=== PATIENT | female | born 1975 | race Asian ===

== ENCOUNTER 2025-04-28 00:12 | Emergency (ER) | payer MEDICAID, SELFPAY ==
[2025-04-28 00:16] VITALS: BP 136/92
[2025-04-28 02:18] LABS: Hematocrit 34.1 % (37.0-47.0); Hemoglobin 10.5 g/dL (12.0-16.0); Mean Corp Hgb Conc. 30.8 g/dL (33.0-37.0); Mean Corpuscular Volume 67.3 fL (81.0-99.0); Nucleated Red Blood Cells % 0 %; Platelet Count 254 10^3/uL (130-400); Red Cell Dist. Width 17.9 % (11.5-14.5)
[2025-04-28 02:32] LABS: ALT (SGPT) 17 U/L (0-35); AST (SGOT) 21 U/L (14-36); Albumin 4.5 g/dl (3.5-5.0); Alkaline Phosphatase 49 U/L (38-126); Blood Urea Nitrogen 10 mg/dl (7-17); Calcium 9.4 mg/dl (8.4-10.2); Carbon Dioxide 26 mmol/L (22-30); Chloride 107 mmol/L (98-107); Glucose 114 mg/dl (70-99); Lipase 147 U/L (23-300); Potassium 4.2 mmol/L (3.5-5.1); Sodium 137 mmol/L (135-145); Total Protein 7.9 g/dl (6.3-8.2); eGFR > 60.00
--- NOTE | 2025-04-28 04:14 | ED.GENMED ---
History of Present Illness
General
Chief Complaint: Abdominal Pain
Source: patient
Exam Limitations: none
Time Seen by Provider: 04/28/25 04:12
Nursing documentation reviewed up to this point in time: agreed with
History of Present Illness
History of Present Illness:
Note:
CHIEF COMPLAINT(S)
Abdominal pain and recent episode of syncope at 10:00 AM.
HISTORY OF PRESENT ILLNESS
The patient is a 50-year-old female who presented with a chief complaint of abdominal pain and a recent episode of syncope. According to the patient, the abdominal pain began earlier today, around 10:00 AM, and is described as a burning sensation.
The pain is located in the abdomen and sometimes radiates to the back. The patient also reported that the sensation was so intense that it caused her to pass out temporarily. She described the pain with the phrase, 'like someone took a poke at it.'
When asked where the pain was located, she pointed to her abdomen and indicated the pain sometimes radiates to her back. The episode of syncope resolved quickly, and she was conscious upon arrival.
REVIEW OF SYSTEMS
- Gastrointestinal: Abdominal pain with burning sensation.
- Neurological: Recent episode of syncope.
PHYSICAL EXAM
- Assessment indicates normal results from the electrocardiogram examination and initial blood workup.
- Nursing notes reviewed and vital signs reviewed.
PROBLEM LIST
Acute Issues:
- Abdominal pain
- Episode of syncope
PLAN
Perform an abdominal ultrasound to evaluate gallbladder health. The patient is agreeable to this test. Suggestion considered that excessive gastrointestinal gas may have contributed to the syncope episode. Continue monitoring and reassurance was
provided.
DIFFERENTIAL DIAGNOSIS
The Differential Diagnosis includes, in no particular order and is not limited to:
1. Cholecystitis
2. Peptic ulcer disease
3. Pancreatitis
4. Gastroesophageal reflux disease (GERD)
5. Hepatic disease
6. Intestinal obstruction
7. Myocardial ischemia
8. Biliary colic
9. Gastritis
10. Syncope due to vasovagal response.
CARE-UPDATE
04/28/25 - 08:09
Ultrasound results indicate no acute findings or signs of hydronephrosis in the right kidney. The patients symptoms have improved, allowing for discharge. Syncope is likely due to a vasovagal episode, not ACS or PE. Discharge with appropriate care
instructions.
EKG
My independent EKG interpretation is:
- Time of EKG: Not specified
- Rhythm: Normal sinus rhythm
- Heart Rate: 88 beats per minute
- WA Interval: Normal
- QRS Duration: Normal
- QT Interval: Normal
- Cashiers: Not specified
- Abnormalities: No signs of ischemia
Disposition:
SUMMARY OF ENCOUNTER
The patient, a 50-year-old female, was seen in the emergency department for abdominal pain and a recent episode of syncope. The abdominal pain was described as a burning sensation that occasionally radiated to the back, and pain intensity led to a
temporary loss of consciousness. Initial tests, including an electrocardiogram and basic blood work, returned normal results. An abdominal ultrasound was performed to evaluate gallbladder health, which showed no acute findings. The syncope was
determined likely due to a vasovagal response, not acute coronary syndrome or pulmonary embolism.
DISPOSITION
Discharge.
PLAN
Continue monitoring symptoms, provide reassurance, and consider that gastrointestinal gas may have contributed to syncope. Discharge with appropriate care instructions and advice to follow up with primary care.
INDEPENDENT REVIEW OF LABS AND INTERPRETATION OF TESTS
- My independent EKG interpretation is normal sinus rhythm with a heart rate of 88 beats per minute, normal WA, QRS, and QT intervals, and no signs of ischemia. - My independent review of the ultrasound indicates no acute findings or signs of
hydronephrosis in the right kidney.
PATIENT EDUCATION AND COUNSELING
The patient was advised that the syncope was likely a vasovagal response and was reassured that the ultrasound showed no acute issues. She was instructed on management of her symptoms and the importance of follow-up care with her primary care
physician.
FOLLOW-UP INSTRUCTIONS
The patient was advised to follow up with primary care and return to the emergency department if symptoms worsen or new symptoms develop.
MEDICATION RECONCILIATION
No medications were prescribed or administered during this visit.
MEDICAL DECISION MAKING
- Chronic conditions affecting care: None mentioned. Differential diagnosis includes cholecystitis, peptic ulcer disease, pancreatitis, gastroesophageal reflux disease (GERD), hepatic disease, intestinal obstruction, myocardial ischemia, biliary
colic, gastritis, and syncope due to vasovagal response.
- Data:
Category 1: My independent interpretation of the EKG and ultrasound.
Category 3: Discussion of management and test interpretation with the patient, considering symptoms and test results.
-Risk: Consideration of Admission/Observation: Escalation of care including admission/observation was considered given the complexity and risk of the patients presenting complaint, exam findings, and/or their underlying comorbidities. However,
ultimately I feel the patient is safe for outpatient management with close follow up. Reasoning: Work-up reassuring, does not reveal any acute life/organ threatening processes, patients symptoms well controlled upon reevaluation, reexamination is
reassuring, vitals are stable, patient agreeable with discharge, reliable for follow-up.
DIAGNOSIS
- Syncope, likely vasovagal (R55)
- Abdominal pain, unspecified (R10.9)
Phy Exam
Physical Exam
Physical Exam:
.
Course
Orders/Labs/Results
Orders:
Orders
04/28/25 00:20
ECG [Electrocardiogram (*1)] Urgent
Reason for Study: Syncope
EKG- Treatment ONCE
04/28/25 01:58
Complete Blood Count/With Diff Urgent
Comprehensive Metabolic Panel Urgent
Lipase Urgent
04/28/25 04:28
US Abdomen Complete/Upper Urgent
Comment:
Reason For Exam: RUQ abd pain
Abnormal Lab Results
04/28/25
01:58
Hgb 10.5 L g/dL
(12.0-16.0)
Hct 34.1 L %
(37.0-47.0)
MCV 67.3 L fL
(81.0-99.0)
MCH 20.7 L pg
(27.0-31.0)
MCHC 30.8 L g/dL
(33.0-37.0)
RDW 17.9 H %
(11.5-14.5)
MPV 10.5 H fL
(7.4-10.4)
Glucose 114 H mg/dl
(70-99)
04/28/25 01:58
04/28/25 01:58
Vital Signs
Initial and Last Documented VS:
Initial Vital Signs
Temp Pulse Resp BP Pulse Ox
98.1 F 96 20 136/92 98
04/28/25 00:16 04/28/25 00:16 04/28/25 00:16 04/28/25 00:16 04/28/25 00:16
Last Documented Vital Signs
Temp Pulse Resp BP Pulse Ox
98.1 F 96 20 136/92 98
04/28/25 00:16 04/28/25 00:16 04/28/25 00:16 04/28/25 00:16 04/28/25 04:15
*Pulse Oximetry
SaO2: 98
Oxygen Mode of Delivery: Room air
Patient hypoxic: no
*Critical Care Note
Total Time (30-74mins, 75-104mins- exclusive of procedures): Not Applicable
ED Attending Note
-
Portions of this chart may have been created with voice recognition software.� Occasional wrong word or��sound alike� substitutions may have occurred due to the inherent limitations of voice recognition software.
Discharge Plan
Departure
Patient Disposition: Home (Routine Discharge)
Date of Disposition: 04/28/25
Time of Disposition: 08:13
Patient with high blood pressure during this ER visit?: Yes
Condition: Good
Discharge Problem:
Syncope, Abdominal pain
Instructions: Syncope (Fainting) (DC), Abdominal Pain
Referrals:
UNKNOWN - PT DOES,NOT KNOW [Family Provider]
Activity Restrictions/Additional Instructions:
Follow up with primary care. Return for any concerns.
Interventions
Interventions:
*Risk Screen - Suicide Last Done: 04/28/25 00:16
*General Assessment Last Done: 04/28/25 06:13
*Neglect/Abuse Screening Last Done: 04/28/25 00:16
*ED- Fall Risk Assessment Last Done: 04/28/25 06:13
*ED COVID-19 Vaccine History Last Done: 04/28/25 06:13
HY-Qadgtf-Ljhovlmcgx Assessment Last Done: 04/28/25 02:00
ED- Cardiac Assessment Last Done: 04/28/25 02:00
ED- Neurological Assessment Last Done: 04/28/25 02:00
Discharge Date and Time
Print Language: COMORAN
== END 2025-04-28 08:40 | disposition home or self-care (01) ==
LOC: EMR 00:12
PROVIDERS: EMERGENCY PHYSICIAN Emergency Medicine
DX: R55 Syncope and collapse (principal); R10.9 Unspecified abdominal pain
CPT/HCPCS: 99284; 76700; 80053; 83690; 85025; 93005